=== PATIENT | female | born 1975 ===

== ENCOUNTER 2017-06-28 06:04 | Inpatient (IN) | payer BC, OTHER ==
[2017-06-26 14:59] VITALS: BMI 27.4
[2017-06-28] MEDS ORDERED: Succinylcholine 200 mg/10 ml Inj IV ONE (07:19)
[2017-06-28] MEDS ORDERED: Phenylephrine 10 mg/ml Inj ONE (07:19)
[2017-06-28] MEDS ORDERED: Rocuronium 10 mg/ml (5 ml) ONE ×2 (07:19→10:32)
[2017-06-28] MEDS ORDERED: Propofol 10 mg/ml Inj (20 ML) ONE (07:19)
[2017-06-28] MEDS ORDERED: ePHEDrine 50 mg/ml Inj ONE (07:19)
[2017-06-28] MEDS ORDERED: Bupivacaine 0.5% Inj(30mL) ONE (07:25)
[2017-06-28] MEDS ORDERED: ceFAZolin IV 1 gm in Dextrose 1 GM/50 ML BAG IVPB ONE ×2 (07:25→08:36)
[2017-06-28] MEDS ORDERED: Lactated Ringer's 1,000 ML IV ONE ×4 (08:00→13:50)
[2017-06-28] MEDS ORDERED: Midazolam 2 MG/2 ML VIAL ONE (08:04)
[2017-06-28] MEDS ORDERED: Dexamethasone 4 mg/1 ml ONE (08:27)
[2017-06-28] MEDS ORDERED: Neostigmine Methylsulfate 2 MG/2 ML ML IV ONE ×2 (08:56→10:24)
[2017-06-28] MEDS ORDERED: HEMOSTATIC MATRIX 10 ML DIS.NEEDLE TOP ONE ×3 (10:15→12:15)
[2017-06-28] MEDS ORDERED: Naloxone 0.4 mg/ml Inj (Adult) IVP PRN (12:49)
[2017-06-28] MEDS: HYDROmorphone 0.5 mg/0.5 ml ISec IVP PRN ×4 (13:07→13:33)
[2017-06-28] MEDS ORDERED: Simethicone 80 mg Chewtab PO PRN (13:09)
[2017-06-28] MEDS ORDERED: cefOXitin Sodium 1 GM in Sodium Chloride 0.9% 100 ML IVPB SCH (16:00)
[2017-06-28] MEDS: cefOXitin Sodium 1 GM in Sodium Chloride 0.9% 100 ML IVPB SCH ×2 (16:33→23:18)
[2017-06-28] MEDS: Lactated Ringer's 1,000 ML IV SCH ×2 (18:39→23:13)
[2017-06-28] MEDS: Apap-Butalbital-Caffeine 325-50-40mg Tab PO PRN (19:49)
--- NOTE | 2017-06-28 20:08 | OP ---
PROCEDURE DATE: 06/28/2017 PREOPERATIVE DIAGNOSIS: Menorrhagia. POSTOPERATIVE DIAGNOSIS: Pending pathology. PROCEDURES: Robotic-assisted hysterectomy with bilateral salpingectomy and bladder repair, cystoscopy was performed. SURGEON: Shira Joe MD STUDENT NURSE: Dr. Song. ANESTHESIA ADMINISTERED BY: Dr. Williamson. TYPE OF ANESTHESIA: General endotracheal tube. COMPLICATIONS: None. ESTIMATED BLOOD LOSS: 100 mL. FLUID REPLACEMENT: Lactated Ringer's, 1900 mL. URINE OUTPUT: 1000 mL. INDICATION FOR SURGERY: A 41-year-old with persistent menorrhagia despite surgical medical management. FINDINGS: Uterus slightly enlarged with intraabdominal adhesions, the uterine adhesions to the anterior abdominal wall, adhesion to the bladder wall, omental adhesions on the anterior abdominal wall noted as well. DESCRIPTION OF PROCEDURE: After informed consent was obtained and signed, the patient was brought to the operating room and placed in the supine position. Once general anesthesia was successfully induced, the patient was placed in a steep Trendelenburg position, prepped and draped in usual sterile fashion and placed in the dorsal lithotomy position. After evaluation of Anesthesia, bivalve speculum was placed intravaginally. The cervix was grasped with single tooth tenaculum, tented forward, dilated in a graduated fashion. The VCare apparatus was then placed with ease and marked into place and confirmed by the movement. The speculum was then removed as well as the tenaculum and attention turned to the pre-prepped abdominal area in which an 8-mm skin incision was made horizontally 2 fingerbreadths above the umbilicus. The Veress needle was then placed intra-abdominally and the abdominal cavity was insufflated with CO2 distention medium. Once considered adequate, the robotic trocar was then placed with ease and then confirmation via camera. The abdominal cavity was surveyed. No trauma was noted. At this point in time, Dr. Song assisted me and placed in the remaining 4 trocars; 3 robotic, 1 accessory port 5-mm, the rest were all 8 mm, 2 in the left, 2 in the right. Once all ports were placed, then the robot was docked without difficulty. Once docking occurred, then the robot was then activated. I then went to the surgeon console and I began the surgery. Dr. Song then elevated the uterus up exposing the patient's round ligaments, which were grasped with the PK, cauterized and then transected with monopolar tushar. This was done bilaterally. Then, anteriorly, a bladder flap was created using sharp dissection with a monopolar scissors and PK sutures. Once this was created, the bladder flap was then displaced distally only from the cervix. Then attention turned back to the ovaries where the ovarian tubal ligament was then grasped with the PK, cauterized and then transected. An N-shape was made in the posterior leaf of broad ligament and the uterus was skeletonized out bilaterally. Once the uterus was observed, the PK was used to cauterize the uterus and then transected using the monopolar tushar. Once the uterus was grasped in both sides, attention turned to the vaginal-cervical junction through which monopolar tushar were used to make a circumferential incision. Once the green cup of the VCare was noted, this excision was created until the entire uterus was excised. Once excision was completed, the uterus was then extracted by Dr. Song. We then replaced with a moist laparotomy pad in the vaginal area to maintain pneumoperitoneum. At this point, Dr. Song removed the monopolar tushar, released a 12-inch V-Loc suture and then we placed in port one the Abel SutureCut apparatus. Once the Abel SutureCut in PK, I then proceeded to close the vaginal cuff. Once the cuff was closed, attention turned to the bladder and a cystoscopy was then performed. The bladder was insufflated with normal saline distention medium. So, at this point in time, one suture was noted to be at the opening at the base of the bladder. At this point in time, we turned back to the console and the suture was released with ease. The bladder was then re-insufflated via cystoscope by Dr. Song and the bladder was noted to be intact. Attention turned intra-abdominally and we evaluated the bladder's integrity, which seemed to be intact but because of the thinning of the bladder area, at this point in time, I decided to put in a 2-0 Vicryl suture to reinforce the bladder floor. Dr. Song then placed a 2-0 Vicryl suture, at which point in time a single free tie suture was placed at the base of the bladder to reinforce the bladder wall. Once this was completed, the bladder wall was then insufflated again by Dr. Song with normal saline distention medium. A good seal was noted, no leaking occurred. The bladder wall was reinforced. The cystoscope was removed. At this point in time, Dr. Song returned back to the accessory port, which was copiously irrigated. Once this was completed, FloSeal was then placed. After the FloSeal was placed, then Dr. Song released the Endoseal into the anterior abdominal cavity. Then, I placed the Endoseal over the bladder and the vaginal cuff to protect it from many potential fistulizations during the healing process. Once this was completed, all equipments were removed. Attention then turned to the abdominal area, which was closed using 2-0 Vicryl suture and Dermabond glue. Dressings were applied. All sponge, needle, equipment counts were correct x3. The patient went to the recovery room in stable condition. Shira Joe MD
[2017-06-29] MEDS: Lactated Ringer's 1,000 ML IV SCH ×2 (04:46→09:58)
[2017-06-29 07:07] LABS: HEMATOCRIT 27.7 % (34.0-47.0); MEAN CELL VOLUME 88.1 fl (81.0-99.0); MEAN CORPUSCULAR HEMOGLOBIN 29.4 pg (27.0-31.0); MEAN CORPUSCULAR HGB CONC 33.4 g/dL (33.0-37.0); RED CELL DISTRIBUTION WIDTH 13.4 % (11.5-14.5); WHITE BLOOD COUNT 10.2 K/uL (4.8-10.8)
[2017-06-29] MEDS: Apap-Butalbital-Caffeine 325-50-40mg Tab PO PRN (09:07)
--- NOTE | 2017-06-29 12:28 | CP.PCM.PN ---
Subjective - Date & Time of Evaluation Date of Evaluation: 06/29/17 Time of Evaluation: 12:27 - Subjective Subjective: Patient complaint of incisional painwhen laughing or coughing Objective - Vital Signs/Intake and Output Vital Signs (last 24 hours): Temp Pulse Resp BP Pulse Ox 98.6 F 72 17 95/54 L 100 06/29/17 04:56 06/29/17 04:56 06/29/17 04:56 06/29/17 04:56 06/29/17 04:56 Intake and Output: 06/29/17 06/29/17 06:59 18:59 Intake Total 2500 Output Total 2450 Balance 50 - Medications Medications: Current Medications Acetaminophen (Tylenol 325mg Tab) 650 mg PO Q4 PRN PRN Reason: Fever >100.4 F Acetaminophen/Butalbital/Caffeine (Fioricet) 1 tab PO Q6 PRN PRN Reason: Migraine headache Last Admin: 06/29/17 09:07 Dose: 1 tab Heparin Sodium (Porcine) (Heparin) 5,000 units SC Q12 JUHI PRN Reason: Protocol Last Admin: 06/29/17 09:10 Dose: 5,000 units Hydromorphone HCl (Dilaudid 0.2 Mg/Ml Contact Lens Molder) 0 mg IV PRN PRN; Protocol PRN Reason: Pain, severe (8-10) Lactated Ringer's (Lactated Ringer's) 1,000 mls @ 200 mls/hr IV .Q5H [facility] Last Admin: 06/29/17 09:58 Dose: 200 mls/hr Naloxone HCl (Narcan) 0.1 mg IVP Q2M PRN PRN Reason: Shortness of Breath Ondansetron HCl (Zofran Inj) 4 mg IVP Q8 PRN PRN Reason: Nausea/Vomiting Simethicone (Mylicon Chew Tab) 80 mg PO TID PRN PRN Reason: Flatulence - Labs Labs: 06/29/17 05:30 - Constitutional Appears: Well - Respiratory Exam Respiratory Exam: NORMAL BREATHING PATTERN - GI/Abdominal Exam GI & Abdominal Exam: Soft, Tenderness, Normal Bowel Sounds Additional comments: incisions clean and dry and intact - Exam Exam: NORMAL INSPECTION - Skin Skin Exam: Normal Color Assessment and Plan - Assessment and Plan (Free Text) Assessment: S/P Robotic assisted hysterectomy Bilateral salpingectomy Plan: 1. D/C IVF 2. D/C [facility] Percocet PRN 3. Advance diet to regular 4. encourage ambulation 5. D/C to home if stable with portable hagen bag for one week and f/u with Dr Joe in one week 6. pelvic rest 8 weeks
[2017-06-29] MEDS: Oxycodone/Acetaminophen 5/325 mg Tab PO PRN ×2 (13:10→18:11)
[2017-06-29 17:15] VITALS: PULSE 66; RESP 17; TEMP 97.9; O2SAT 97
[2017-06-29 17:18] VITALS: BP 100/59
== END 2017-06-29 19:30 | disposition home or self-care (01) | DRG 743 ==
LOC: H.OPSURG 06:04 → H.PEDS 14:43
PROVIDERS: ADMIT Specialist; ATTEND Specialist
PROC: 0UT7FZZ Resection of Bilateral Fallopian Tubes, Via Natural or Artificial Opening With Percutaneous Endoscopic Assistance (ICD-10-PCS; 2017-06-28)
PROC: 0TQB8ZZ Repair Bladder, Via Natural or Artificial Opening Endoscopic (ICD-10-PCS; 2017-06-28)
PROC: 8E0W4CZ Robotic Assisted Procedure of Trunk Region, Percutaneous Endoscopic Approach (ICD-10-PCS; 2017-06-28)
PROC: 0UT9FZZ Resection of Uterus, Via Natural or Artificial Opening With Percutaneous Endoscopic Assistance (ICD-10-PCS; principal; 2017-06-28 07:45)
PROC: 0UTC7ZZ Resection of Cervix, Via Natural or Artificial Opening (ICD-10-PCS; 2017-06-28 07:45)
DX: N92.0 Excessive and frequent menstruation with regular cycle (principal)